=== PATIENT | male | born 1995 | race Caucasian/White ===

== ENCOUNTER 2016-06-18 10:40 | Emergency (ER) | payer SELFPAY ==
[~2016-06-18] VITALS: Ht 185.4 cm; Wt 86.6 kg
[~2016-06-18 10:40] MED LIST: ANTIVERT25 MG PO; AUGMENTIN875 MG PO; MEDROL DOSEPAK4 MG PO
[2016-06-18] MEDS ORDERED: NAPROSYN500 MG PO (12:55)
[2016-06-18] MEDS ORDERED: ZYRTEC10 M2 PO (12:55)
[2016-06-18] MEDS ORDERED: MUCUS ER600 MG PO (12:55)
[2016-06-18] MEDS ORDERED: FLONASE16 G1 BOTH NARES (12:55)
[2016-06-18 13:11] VITALS: BP 128/70
== END 2016-06-18 13:11 | disposition home or self-care (01) ==
LOC: EME 10:40
DX: J32.9 Chronic sinusitis, unspecified (principal); J06.9 Acute upper respiratory infection, unspecified; Z87.891 Personal history of nicotine dependence
CPT/HCPCS: 99281; 99284

== ENCOUNTER 2017-04-06 01:11 | Emergency (ER) | payer BC ==
[~2017-04-06] VITALS: Ht 185.4 cm; Wt 85.3 kg
[~2017-04-06 01:11] MED LIST changes: +FLONASE16 G1 BOTH NARES; +MUCUS ER600 MG PO; +NAPROSYN500 MG PO; +ZYRTEC10 M2 PO
[2017-04-06] MEDS ORDERED: AMOXICILLIN500 MG PO (02:17)
[2017-04-06] MEDS ORDERED: NORCO 5/3251 TABLET PO (02:17)
[2017-04-06 02:26] VITALS: BP 136/91
== END 2017-04-06 02:28 | disposition home or self-care (01) ==
LOC: EME 01:11
DX: K08.89 Other specified disorders of teeth and supporting structures (principal)
CPT/HCPCS: 99281; 99283

== ENCOUNTER 2017-04-23 19:43 | Emergency (ER) | payer BC ==
[~2017-04-23] VITALS: Ht 185.4 cm; Wt 89.4 kg
[~2017-04-23 19:43] MED LIST changes: +AMOXICILLIN500 MG PO; +NORCO 5/3251 TABLET PO
[2017-04-23] MEDS ORDERED: PEN-VEE K,VEET500 MG PO (21:29)
[2017-04-23 21:37] VITALS: BP 136/84
== END 2017-04-23 21:39 | disposition home or self-care (01) ==
LOC: EME 19:43
DX: K08.89 Other specified disorders of teeth and supporting structures (principal); K02.9 Dental caries, unspecified
CPT/HCPCS: 99281; 99284

== ENCOUNTER 2017-07-29 19:17 | Emergency (ER) | payer BC ==
[~2017-07-29] VITALS: Ht 185.4 cm; Wt 85.1 kg
[~2017-07-29 19:17] MED LIST changes: +PEN-VEE K,VEET500 MG PO
[2017-07-29 20:31] VITALS: BP 142/71
== END 2017-07-29 20:33 | disposition home or self-care (01) ==
LOC: EME 19:17 → EXP 19:17
DX: S93.602A Unspecified sprain of left foot, initial encounter (principal); W22.8XXA Striking against or struck by other objects, initial encounter; Z87.891 Personal history of nicotine dependence
CPT/HCPCS: 73630; 99281; 99284